=== PATIENT | female | born 1985 | race African-American/Black ===

== ENCOUNTER 2018-09-16 21:20 | Emergency (ER) | payer SELFPAY ==
[~2018-09-16] VITALS: Ht 157.5 cm; Wt 53.5 kg
[2018-09-16 21:37] VITALS: BP 101/70
[2018-09-16] MEDS ORDERED: HYDROcodone-ACET 5/325MG TAB PO ONE (23:30)
[2018-09-16] MEDS ORDERED: IBUPROFEN 600 MG TAB PO ONE (23:30)
== END 2018-09-17 00:12 | disposition home or self-care (01) ==
LOC: ER 21:26
DX: S63.501A Unspecified sprain of right wrist, initial encounter (principal); S63.601A Unspecified sprain of right thumb, initial encounter; V29.9XXA Motorcycle rider (driver) (passenger) injured in unspecified traffic accident, initial encounter; Y93.89 Activity, other specified; Y92.89 Other specified places as the place of occurrence of the external cause; Y99.8 Other external cause status
CPT/HCPCS: 29125; 73110; 81025